=== PATIENT | female | born 1980 | race Caucasian/White ===

== ENCOUNTER 2017-02-16 16:09 | Emergency (ER) | payer OTHER ==
[2017-02-16 16:49] VITALS: BP 107/73
--- NOTE | 2017-02-16 19:48 | UC ---
Maddison Galarza Erika, scribed for Reshma Rodriguez DO on 02/16/17 at 1734 . Respiratory Complaint HPI - HPI Summary HPI Summary: Patient is a 36-year-old female presenting to [facility] with a CC of a cough for the past 2 weeks. Cough is mildly productive. Associated symptoms include fatigue, clear nasal discharge, and hoarse voice. Patient does report that she had a headache the first week, but it has resolved. Patient also reports she has coughed so hard she that she gagged, but denies vomiting from coughing. Coughs can come in coughing spasms. Coughing is aggravated by deep breathing and exertion. Patient reports that on 02/11/2017, she had a coughing spasm, and suddenly felt a spasm in her lower left back. She has had constant back pain since then, rated a 6/10, sharp with movement and dull with rest. Pain is aggravated by standing up from a sitting position as well as from ambulating. It is improved with lumbar support. She denies ear ache, sore throat, chest pain , SOB, nausea, vomiting, diarrhea, abdominal pain, urinary or fecal incontinence , rashes, numbness, weakness, and tingling. Pt states she has been able to sleep. Patient denies PMHx. FHx [place] at 41 in her father - possibly secondary to kidney infection. Patient does not smoke. Patient is unsure of her last Tdap. - History of Current Complaint Chief Complaint: UCRespiratory Stated Complaint: COUGH BACK PAIN Time Seen by Provider: 02/16/17 16:51 Hx Obtained From: Patient Hx Last Menstrual Period: 2 WEEKS AGO ?: No Onset/Duration: Gradual Onset, Lasting Weeks - 2 weeks, Still Present Timing: Constant Severity Initially: Mild Severity Currently: Moderate Pain Intensity: 6 Pain Scale Used: 0-10 Numeric Character: Sputum Description: - clear Aggravating Factors: Exertion, Deep Breaths Alleviating Factors: OTC Meds - Mucinex Associated Signs And Symptoms: Positive: Dyspnea, URI, Nasal Congestion, Sinus Discomfort - resolved. Negative: Fever, Chills, Pleuritic Chest Pain, Wheezing , Hemoptysis, Calf Pain, Calf Swelling, Edema - Allergies/Home Medications Allergies/Adverse Reactions: Allergies Allergy/AdvReac Type Severity Reaction Status Date / Time No Known Allergies Allergy Verified 02/16/17 16:49 Home Medications: Home Medications Control* 02/16/17 [History] Ibuprofen TAB* [Advil TAB*] 600 mg PO PRN 02/16/17 [History] Zvtndeffoagny-Ro-BV W/ APAP [Delsym Cough + Cold D... 9-12-981-325 mg/10Ml] 1 liq PO PRN 02/16/17 [History] guaiFENesin ER TAB [Mucinex*] PRN 02/16/17 [History] PMH/Surg Hx/FS Hx/Imm Hx Previously Healthy: Yes Endocrine History Of: Denies: Diabetes Cardiovascular History Of: Denies: Hypertension - Surgical History Surgical History: None - Family History Known Family History: Positive: Cardiac Disease - [place] at 39 in father - Social History Occupation: Employed Full-time Alcohol Use: Occasionally Substance Use Type: None Smoking Status (MU): Never Smoked Tobacco Review of Systems Constitutional: Negative Skin: Bruising Eyes: Negative ENT: Nasal Discharge, Other - hoarse voice Respiratory: Cough Cardiovascular: Negative Gastrointestinal: Negative Genitourinary: Negative Motor: Negative Neurovascular: Negative Musculoskeletal: Myalgia - left lower back pain Neurological: Negative Psychological: Negative All Other Systems Reviewed And Are Negative: Yes Physical Exam Triage Information Reviewed: Yes Appearance: Well-Appearing, No Pain Distress, Well-Nourished Vital Signs: Initial Vital Signs Temp 99.7 F 02/16/17 16:46 Pulse 88 02/16/17 16:46 Resp 16 02/16/17 16:46 BP 107/73 02/16/17 16:46 Pulse Ox 97 02/16/17 16:46 Vital Signs Reviewed: Yes Eyes: Positive: Conjunctiva Clear. Negative: Discharge ENT: Positive: Pharynx normal, TMs normal, Other: - Nasal mucosa red Neck: Positive: Supple, Nontender Respiratory: Positive: Normal breath sounds, No respiratory distress, No accessory muscle use, Wheezing - rare, Other: - Frequent coughing while in the room. Prolonged expiration Cardiovascular: Positive: RRR, No Murmur Musculoskeletal Exam: Other - Paraspinal tenderness, worse left than right, and worst over the SI joint as well as the lumbar region just superior to it Neurological: Positive: Alert, Muscle Tone Normal, Other: - Lower extremity strength, sensation, and reflexes intact bilaterally Psychological Exam: Normal Psychological: Positive: Age Appropriate Behavior Skin Exam: Other - Warm, dry, normal color UC Diagnostic Evaluation - Laboratory O2 Sat by Pulse Oximetry: 97 Respiratory Course/Dx - Differential Dx/Diagnosis Differential Diagnosis/HQI/PQRI: Bronchitis, Lower Resp Infection, Sinusitis Provider Diagnoses: Bronchitis and bronchospasm Discharge - Discharge Plan Condition: Stable Disposition: HOME Prescriptions: Albuterol HFA INHALER* [Ventolin HFA Inhaler*] 2 puff INH Q4H PRN #1 mdi PRN Reason: Sob/Wheezing Azithromycin TAB* [Zithromax TAB (Z-SHELLIE) 250 mg #6 tabs] 0 mg PO .SEE INSTRUCTIONS #6 tab Benzonatate CAP* [Tessalon 100 MG CAP*] 100 mg PO TID #30 cap Cyclobenzaprine TAB* [Flexeril TAB*] 10 mg PO TID PRN #30 tab PRN Reason: Pain predniSONE TAB* [Deltasone TAB*] 40 mg PO DAILY #10 tab Patient Education Materials: Acute Bronchitis (ED), Low Back Strain (ED), Bronchospasm (ED) Referrals: No Primary Care Phys,NOPCP [Primary Care Provider] - Additional Instructions: WE ARE TESTING YOU FOR PERTUSSIS INHALED BRONCHODILATORS: You have received a prescription for an inhaled bronchodilator -- a medication which stimulates the airways in the lung to dilate. This improves the flow of air in asthma, bronchitis, and emphysema. These medicines have some similarity to adrenaline, and can cause similar side effects: shakiness, racing heart, and a sense of nervousness. These side effects decrease with time. Contact your doctor if these side effects are severe. Do not over-use the medicine. Too-frequent use of the inhaler may make it ineffective. Call your doctor if the inhaler is not controlling your symptoms at the prescribed doses. EXPECTORANT MEDICATION:CONTINUE MUCINEX An expectorant medicine has been prescribed. This type of drug makes mucous thinner, helping the sinuses, nose, and bronchial tubes to remain free of pus and mucous. Expectorants make a cough less severe and more comfortable, and help infected sinuses drain. In general, antihistamines defeat the purpose of the expectorant by making mucous thicker. They should be avoided unless specifically recommended by your physician. TESSALON PERLES: You have received a prescription for Tessalon Perles (benzonatate). This is a non-narcotic medicine for relief of cough. It usually works in about 15- 20 minutes and lasts around four hours. Tessalon Perles should be swallowed. They should not be chewed or dissolved in the mouth (this can produce temporary numbing of the mouth and choking can occur). If you develop any adverse effects such as wheezing, shortness of breath, hives, rash, itching, or lightheadedness, please return at once. CORTICOSTEROID MEDICATION: You have been given a medicine of the cortisone class. This medication is used to control inflammation or allergy. It is usually only given for a short period of time, until the acute process subsides. There are usually no side effects from short-term use of cortisone-like medications. Some persons feel an increased sense of well-being and are not sleepy at bedtime. Long-term use of cortisone medications is best avoided, unless required for a severe condition. If your condition does not remit, or relapses after the course of corticosteroid medication, you should consult your physician. Contact the physician if you develop lightheadedness, black or tarry stools , swelling of the legs, or significant rapid change in weight. ANTIBIOTICS ARE NOT CURRENTLY INDICATED FOR YOUR CONDITION. HOWEVER IF YOUR SYMPTOMS WORSEN OR FAIL TO IMPROVE FOR MORE THAN 3-4 DAYS, YOU CAN START THE FOLLOWING ANTIBIOTIC: AZITHROMYCIN: Azithromycin (Zithromax) is a broad spectrum antibiotic in the same class as erythromycin. It can treat a variety of bacterial infections, but is most frequently used for respiratory infections. Azithromycin is extremely long-lasting. It accumulates in body tissues and continues to kill bacteria for many days. In order to improve absorption, Azithromycin should be taken at least one hour before or two hours after a meal. It does not have the same strong tendency to upset the stomach as erythromycin and is usually very well tolerated. Patients who have had a rash or other true allergic reactions to erythromycin should not take this medication. Call if you develop gastrointestinal distress, severe diarrhea, rash, hives, itching, or shortness of breath. ANY TIME YOU TAKE AN ANTIBIOTIC, IT IS IMPORTANT TO REPLENISH THE BODY'S BALANCE OF "GOOD" BACTERIA BY EATING HIGH QUALITY CULTURED FOOD SUCH YOGURT, SAURKRAUT OR ARPIT CHI AND/OR TAKING A PROBIOTIC SUPPLEMENT. FOR YOUR LOW BACK STRAIN: MUSCLE RELAXERS: Muscle relaxing medications are usually prescribed for acute muscle spasm or injury to the neck and back. They are often combined with antiinflammatory pain medication for increased relief. You may stop the muscle relaxer when the pain and stiffness have improved. Start the medication again if spasms recur. Muscle relaxers may cause drowsiness, especially with the first dose. Do not operate machinery or drive while under the effects of the medication. Most muscle relaxers last up to 24 hours. Do not combine the medication with alcohol. FOLLOW-UP CARE: You should establish with a private physician for follow-up care IN 1-2 WEEKS. If you are unable to get a timely appointment, or if you are worsening, call us or return for re-evaluation. An additional resource available to assist in finding the appropriate physician for your health care needs is the Physician Referral Center. You may contact them by calling [phone]. AND YOU WOULD LIKELY BENEFIT FROM OSTEOPATHIC MANIPULATION. WE RECOMMEND THAT YOU FIND AN OSTEOPATHIC PHYSICIAN IN YOUR AREA WHO DOES LYMPHATIC, MYOFACIAL AND VISCERAL WORK The documentation as recorded by the Maddison ardon Erika accurately reflects the service I personally performed and the decisions made by , Reshma Rodriguez DO.
== END 2017-02-16 18:00 | disposition home or self-care (01) ==
LOC: UCEAST 16:09
DX: J21.9 Acute bronchiolitis, unspecified (principal); I25.2 Old myocardial infarction
CPT/HCPCS: 87798; 99202; G0463

== ENCOUNTER 2017-02-24 21:05 | Emergency (ER) | payer OTHER ==
[2017-02-24 21:36] VITALS: BP 121/77
--- NOTE | 2017-02-24 21:50 | UC ---
Complaint Female HPI - HPI Summary HPI Summary: ONSET OF DYSURIA, FREQUENCY AND URGENCY THIS EVENING. URINE IS CLOUDY AND DARK. 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 NO FEVER, NAUSEA OR BACK PAIN. - History Of Current Complaint Chief Complaint: UCGU Stated Complaint: UTI Time Seen by Provider: 02/24/17 21:31 Hx Obtained From: Patient Hx Last Menstrual Period: 01/24/17 Onset/Duration: Gradual Onset, Lasting Hours, Still Present Timing: Constant Severity Initially: Moderate Severity Currently: Moderate Pain Intensity: 4 Pain Scale Used: 0-10 Numeric Character: Burning Aggravating Factor(s): Urination Alleviating Factor(s): Nothing Associated Signs And Symptoms: Negative: Fever, Back Pain, Vaginal Discharge, Nausea, Vomiting(# Of Episodes =) - Allergies/Home Medications Allergies/Adverse Reactions: Allergies Allergy/AdvReac Type Severity Reaction Status Date / Time No Known Allergies Allergy Verified 02/24/17 21:16 Home Medications: Home Medications Pumpkin Seed-Soy Germ [Azo Bladder Control/Go-Le] 1 cap PO 02/24/17 [History] PMH/Surg Hx/FS Hx/Imm Hx Previously Healthy: Yes Endocrine History Of: Denies: Diabetes Cardiovascular History Of: Denies: Hypertension - Surgical History Surgical History: None - Family History Known Family History: Positive: Cardiac Disease - [place] at 39 in father - Social History Alcohol Use: Occasionally Substance Use Type: None Smoking Status (MU): Never Smoked Tobacco Review of Systems Constitutional: Negative Respiratory: Negative Cardiovascular: Negative Gastrointestinal: Abdominal Pain Genitourinary: Dysuria, Frequency, Urgency All Other Systems Reviewed And Are Negative: Yes Physical Exam Triage Information Reviewed: Yes Appearance: Well-Appearing, No Pain Distress, Well-Nourished Vital Signs: Initial Vital Signs Temp 97.2 F 02/24/17 21:26 Pulse 91 02/24/17 21:26 Resp 20 02/24/17 21:26 BP 121/77 02/24/17 21:26 Pulse Ox 100 02/24/17 21:26 Vital Signs Reviewed: Yes Eyes: Positive: Conjunctiva Clear ENT: Positive: Hearing grossly normal Neck: Positive: Supple Respiratory: Positive: No respiratory distress, No accessory muscle use Cardiovascular: Positive: Pulses Normal Abdomen Description: Positive: Soft, Other: - MILD SUPRAPUBIC TTP. Negative: CVA Tenderness (R), CVA Tenderness (L), Distended, Guarding Musculoskeletal: Positive: No Edema Neurological: Positive: Alert Psychological: Positive: Age Appropriate Behavior Complaint Female Dx - Course Course Of Treatment: UNABLE TO PERFORM URINE DIP DUE TO AZO. SPECIMEN SENT FOR CULTURE - Differential Dx/Diagnosis Provider Diagnoses: PRESUMPTIVE UTI Discharge - Discharge Plan Condition: Stable Disposition: HOME Prescriptions: Sulfamethox/Trimethoprim DS* [Bactrim DS 800/160 TAB*] 1 tab PO BID #9 tab Patient Education Materials: Urinary Tract Infection in Women (ED) Referrals: No Primary Care Phys,NOPCP [Primary Care Provider] - Additional Instructions: URINE SENT FOR CULTURE. WE WILL CALL YOU IF WE NEED TO CHANGE YOUR MEDICATION. BE AWARE THAT ANTIBIOTICS CAN REDUCE THE EFFICACY OF CONTROL PILLS. BE SURE TO USE A BACK UP METHOD OF CONTRACEPTION FOR THE REMAINDER OF THIS CYCLE. CALL THE NUMBER BELOW FOR ASSISTANCE IN ESTABLISHING WITH A PCP An additional resource available to assist in finding the appropriate physician for your health care needs is the [facility] Referral [facility] ([facility]). You may contact them by calling [phone].
[2017-02-24] MEDS ORDERED: Sulfamethox/Trimethoprim DS 800/160* TAB PO ONE (21:55)
== END 2017-02-24 22:10 | disposition home or self-care (01) ==
LOC: UCEAST 21:05
DX: N39.0 Urinary tract infection, site not specified (principal)
CPT/HCPCS: 87086; 99212; A9270-GY; G0463